=== PATIENT | female | born 1995 | race Caucasian/White ===

== ENCOUNTER 2017-11-12 19:07 | Emergency (ER) | END 2017-11-13 02:40 | disposition home or self-care (01) ==

== ENCOUNTER 2017-11-16 14:40 | Emergency (ER) | END 2017-11-17 01:40 | disposition left against medical advice (07) ==

== ENCOUNTER 2017-11-17 11:31 | Emergency (ER) | END 2017-11-17 20:51 | disposition home or self-care (01) ==